=== PATIENT | male | born 1985 | race Caucasian/White ===

== ENCOUNTER 2021-03-19 11:14 | Emergency (ER) | payer MEDICAID ==
[~2021-03-19] VITALS: Ht 170.2 cm; Wt 77.0 kg
[2021-03-19] MEDS ORDERED: BACITRACIN ZINC OINT UDPKT TOP NR (11:45)
[2021-03-19] MEDS ORDERED: TETANUS, DIPHTHERIA, PERTUSSIS VAC/PF 0.5ML (>7YR OLD) IM ONE (11:45)
[2021-03-19] MEDS ORDERED: LIDOCAINE HCL/EPINEPHRINE 1%-EPI 1:100,000 20 ML VIAL INFIL NR (11:45)
[2021-03-19] MEDS ORDERED: HYDROCODONE/ACETAMINOPHEN 5/325MG TABLET PO NR (11:45)
[2021-03-19] MEDS ORDERED: ACETAMINOPHEN WITH CODEINE 300/30MG TABLET PO ONE (17:45)
[2021-03-19] MEDS ORDERED: CEPH500C2 MT (19:15)
[2021-03-19 19:31] VITALS: BP 128/78
== END 2021-03-19 19:40 | disposition home or self-care (01) ==
LOC: ER 11:14 → CANBEDREQ 22:44
DX: S61.112A Laceration without foreign body of left thumb with damage to nail, initial encounter (principal); S66.222A Laceration of extensor muscle, fascia and tendon of left thumb at wrist and hand level, initial encounter; W27.0XXA Contact with workbench tool, initial encounter; Y93.89 Activity, other specified; Y92.9 Unspecified place or not applicable
CPT/HCPCS: 73120; 90471; 90715; 99284; A4217; J3490; Z7610